=== PATIENT | female | born 1990 | race Caucasian/White ===

== ENCOUNTER → 2018-02-21 | Outpatient (CLI) | payer BC ==
[~2018-02-21] MED LIST: JOLIVETTE0.35 MG; PRENATAL ONE T1 EACH
--- NOTE | 2018-02-21 10:23 | Diagnostic Imaging Report ---
PROCEDURE:ABDOMINAL ULTRASOUND COMPARISON:None. INDICATIONS: LUQ PAIN TECHNIQUE: Transverse and longitudinal images of the upper abdomen were obtained. FINDINGS: Limited visualization due to overlying bowel. Liver: Size: 16 cm in the right midclavicular line, normal Appearance: Normal echogenicity, smooth contour Mass: No focal masses Spleen: Size: 11.4 cm in length, normal Echogenicity: Normal Mass: No focal masses Gallbladder: Stones/Sludge: None Appearance: No wall thickening or pericholecystic fluid. Sonographic Alejo's Sign: Negative Bile Ducts: Intrahepatic Ducts: No dilatation Extrahepatic Ducts: Common bile duct measures 0.3 cm, no dilatation Pancreas: Limited visualization. The visualized portions of the pancreatic head appear unremarkable. Right Kidney: Size: 10.5 cm Echogenicity: Normal Collecting System: No hydronephrosis Stone: None Cyst/Mass: None Left Kidney: Size: 10.5 cm Echogenicity: Normal Collecting System: No hydronephrosis Stone: None Cyst/Mass: None Vessels: Aorta: Visualized portions are normal Inferior Vena Cava: Visualized portions and normal Main Portal Vein: 1 cm, normal size with hepatopedal flow. Free Fluid: No ascites. IMPRESSION: No etiology identified for left upper quadrant abdominal pain. Liver measuring at the upper limits of normal at 16 cm. No sonographic evidence of fatty liver. Dictated by: ROSALIE KINNEY M.D. on 02/21/2018 at 10:28 Electronically approved by: ROSALIE KINNEY M.D. on 02/21/2018 at 10:28
== END ==
LOC: US 09:15
PROVIDERS: ATTEND Family Medicine
DX: R10.12 Left upper quadrant pain (principal)
CPT/HCPCS: 76700

== ENCOUNTER 2025-05-20 11:28 | Emergency (ER) | payer BC ==
[~2025-05-20] VITALS: Ht 172.7 cm; Wt 84.4 kg
[2025-05-20 12:05] VITALS: PULSE 66; RESP 15; TEMP 98.3
[2025-05-20 12:20] LABS: BASOPHILS % 0.4 % (0.0-1.0); EOSINOPHILS % 0.8 % (0.0-6.0); LYMPHOCYTES % 30.0 % (18.0-39.1); MONOCYTES % 6.0 % (4.4-11.3); NEUTROPHILS % 62.5 % (38.7-80.0); RED CELL DISTRIBUTION WIDTH 12.8 % (11.7-14.4)
[2025-05-20 12:43] LABS: EST GLOMERULAR FILTRATION RATE 79.0 ML/MIN (>=60)
[2025-05-20 13:23] VITALS: BP 126/85; PULSE 55; RESP 21; TEMP 98.3; O2SAT 100
== END 2025-05-20 13:24 | disposition home or self-care (01) ==
LOC: ER 11:35
DX: R06.02 Shortness of breath (principal); R07.89 Other chest pain; I10 Essential (primary) hypertension
CPT/HCPCS: 36415; 71045; 80053; 83690; 84484; 85025; 93005; 99284